=== PATIENT | female | born 1990 | race American Indian/Alaskan Native ===

== ENCOUNTER 2016-08-17 10:35 | Emergency (ER) | payer SELFPAY ==
--- NOTE | 2016-08-17 13:27 | XRay Report ---
LEFT THUMB THREE VIEWS: 08/17/16 10:35:00 CLINICAL: Injury and pain. FINDINGS: No fracture or dislocation.Moderate soft tissue swelling. No foreign body or soft tissue air. IMPRESSION: Soft tissue injury.
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
[2016-08-17] MEDS ORDERED: BOOSTRIX IM ONE (16:20)
[2016-08-17] MEDS ORDERED: TRIPLE ANTIBIOTIC TP ONE (16:20)
[2016-08-17] MEDS ORDERED: MOTRIN PO ONE (16:21)
[2016-08-17] MEDS ORDERED: AUGMENTIN 875 MG PO ONE (16:21)
[2016-08-17 17:01] VITALS: BP 158/100
== END 2016-08-17 17:44 | disposition home or self-care (01) ==
LOC: ED 10:35
DX: S61.052A Open bite of left thumb without damage to nail, initial encounter (principal); S50.812A Abrasion of left forearm, initial encounter; S30.810A Abrasion of lower back and pelvis, initial encounter; F17.200 Nicotine dependence, unspecified, uncomplicated; F12.10 Cannabis abuse, uncomplicated; Y04.1XXA Assault by human bite, initial encounter; Y93.89 Activity, other specified; Y99.8 Other external cause status; Y92.89 Other specified places as the place of occurrence of the external cause
CPT/HCPCS: 90471; 90715; A6250

== ENCOUNTER 2020-02-16 22:02 | Emergency (ER) | payer SELFPAY | END 2020-02-16 22:30 | disposition left against medical advice (07) | LOC: ED 22:02 | DX: N64.4 Mastodynia (principal); Z53.21 Procedure and treatment not carried out due to patient leaving prior to being seen by health care provider ==